=== PATIENT | female | born 1935 | race Native Hawaiian/Other Pacific Islander ===

== ENCOUNTER 2021-08-17 15:18 | Outpatient (CLI) | payer OTHER | END 2021-08-17 20:02 | disposition home or self-care (01) | LOC: US 15:18 | PROVIDERS: ATTEND Internal Medicine | DX: I83.91 Asymptomatic varicose veins of right lower extremity (principal) ==

== ENCOUNTER 2021-08-22 09:04 | Outpatient (CLI) | payer OTHER ==
[2021-08-22 10:00] LABS: PLATELET COUNT 181 K/uL (152-353)
[2021-08-22 10:31] LABS: POTASSIUM 4.2 mmol/L (3.6-5.2)
== END 2021-08-22 18:56 | disposition home or self-care (01) ==
LOC: LABW 09:04
PROVIDERS: ATTEND Internal Medicine
DX: I10 Essential (primary) hypertension (principal); E03.8 Other specified hypothyroidism
CPT/HCPCS: 36415; 80053; 80061; 84439; 84443; 85027

== ENCOUNTER 2021-12-19 13:17 | Outpatient (CLI) | payer OTHER ==
[2021-12-19 14:22] LABS: PLATELET COUNT 196 K/uL (152-353)
[2021-12-19 14:53] LABS: POTASSIUM 4.1 mmol/L (3.6-5.2)
== END 2021-12-19 19:13 | disposition home or self-care (01) ==
LOC: LAB 13:17
PROVIDERS: ATTEND Internal Medicine
DX: N39.0 Urinary tract infection, site not specified (principal); E11.9 Type 2 diabetes mellitus without complications
CPT/HCPCS: 80053; 80061; 83036; 84439; 84443; 85027; 87077; 87086; 87088; 87186